=== PATIENT | male | born 1975 | race African-American/Black ===

== ENCOUNTER 2016-12-28 00:42 | Emergency (ER) | payer SELFPAY ==
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
== END 2016-12-28 02:52 | disposition home or self-care (01) ==
LOC: CED 00:42
DX: S16.1XXA Strain of muscle, fascia and tendon at neck level, initial encounter (principal); S39.012A Strain of muscle, fascia and tendon of lower back, initial encounter; V43.62XA Car passenger injured in collision with other type car in traffic accident, initial encounter
CPT/HCPCS: 72040; 72100; 99284